=== PATIENT | female | born 1990 | race Hispanic/Latino ===

== ENCOUNTER → 2018-03-07 | Outpatient (CLI) | payer MEDICARE | END | disposition home or self-care (01) | LOC: SLP 10:00 | PROVIDERS: ATTEND Family Medicine | DX: G47.30 Sleep apnea, unspecified (principal); R51 Headache; R53.83 Other fatigue; E66.9 Obesity, unspecified; J45.909 Unspecified asthma, uncomplicated | CPT/HCPCS: 95810 ==